=== PATIENT | male | born 1940 | race Caucasian/White ===

== ENCOUNTER 2017-07-05 16:51 | Emergency (ER) | payer MEDICARE ==
[~2017-07-05] VITALS: Ht 182.9 cm; Wt 135.0 kg
[2017-07-05 17:00] VITALS: BP 219/95; PULSE 88; RESP 18; TEMP 98.4; O2SAT 97
--- NOTE | 2017-07-05 17:54 | PD ---
HPI Chief Complaint: Fall Time Seen by Provider: 17:35 Travel History International Travel<30 days: No Contact w/Intl Traveler<30days: No History of Present Illness HPI 77yo M with PMH of afib on eliquis, DM, HTN, presents to the ED with chipped front tooth and abrasion on nose and mid upper lip s/p trip and fall at 4:38pm today. Pt was walking when he didn't lift his leg high enough and fell forward. States he hit his face but does not think he think his head. Denies any headache, dizziness, chest pain, sob, n/v, abdominal pain, focal weakness or numbness. PFSH Social History Tobacco Use: No Allergies-Medications (Allergen,Severity, Reaction): Coded Allergies: No Known Allergies (Unverified , 07/05/17) Reported Meds & Prescriptions Reported Meds & Active Scripts Active Tylenol (Acetaminophen) 325 Mg Tab 325 Mg PO Q6H PRN Reported Refresh Optive Advanced Opth Drops (Swvvzazaculvghlvk-Jtkorxsqt-Ycrvuhevahe 80) 0.5-1-0.5% Soln 1-2 Drop LEFT EYE BID PRN Combigan Opth Drops (Brimonidine-Timolol Opth Drops) 0.2-0.5% Soln 1 Drop LEFT EYE Q12HR Simvastatin 20 Mg Tab 20 Mg PO DAILY Niacin ER 1,000 Mg Tab 2,000 Mg PO DAILY Metformin (Metformin HCl) 500 Mg Tab 1,500 Mg PO HS With a meal Magnesium Oxide 400 Mg Tab 400 Mg PO DAILY Lyrica (Pregabalin) 75 Mg Cap 75 Mg PO DAILY Losartan (Losartan Potassium) 50 Mg Tab 50 Mg PO DAILY Januvia (Sitagliptin Phosphate) 100 Mg Tab 100 Mg PO DAILY Furosemide 40 Mg Tab 40 Mg PO DAILY Finasteride 5 Mg Tab 5 Mg PO DAILY Do not crush. Eliquis (Apixaban) 5 Mg Tab 5 Mg PO BID Caltrate 600+D Chew (Calcium Carbonate-Vitamin D Chew) 600-400 Mg-Unit Chew 1 Tab PO DAILY Review of Systems Except as stated in HPI: all other systems reviewed are Neg Physical Exam Narrative GENERAL: 77yo M in mild distress. SKIN: Focused skin assessment warm/dry. HEAD: Atraumatic. Normocephalic. EYES: Pupils equal and round. No scleral icterus. No injection or drainage. ENT: No nasal bleeding or discharge. No septal hematoma. MOUTH: +Chipped tooth #9. No pulp exposure. There is some dried blood in the gum in between tooth 6 and 7 as well as tooth 10 and 11. No loose tooth on exam. No laceration inside mouth. Abrasion in mid upper lip. NECK: No midline cervical spine ttp. CARDIOVASCULAR: Regular rate and rhythm. No murmur appreciated. RESPIRATORY: No accessory muscle use. Clear to auscultation. Breath sounds equal bilaterally. GASTROINTESTINAL: Abdomen soft, non-tender, nondistended. MUSCULOSKELETAL: No obvious deformities. No clubbing. No cyanosis. No edema. NEUROLOGICAL: Awake and alert. No obvious cranial nerve deficits. Motor grossly within normal limits. Normal speech. PSYCHIATRIC: Appropriate mood and affect; insight and judgment normal. Data Data Last Documented VS Vital Signs Date Time Temp Pulse Resp B/P Pulse Ox O2 Delivery O2 Flow Rate FiO2 07/05/17 18:29 77 18 140/69 98 Room Air 07/05/17 17:[address] Brain W/O Iv Contrast(Rout) (07/05/17 ) Ct Facial Bones W/O Iv Cont (07/05/17 ) Electrocardiogram (07/05/17 ) Blood Glucose (07/05/17 17:54) Tetanus/Diphtheria Tox Adult (Tetanus/Di (07/05/17 18:00) Bacitracin Oint (Baciguent Oint) (07/05/17 18:00) MDM Medical Decision Making Medical Screen Exam Complete: Yes Emergency Medical Condition: Yes Interpretation(s) EKG: Afib at 81bpm. LAD. No ST segment elevation or depression. Differential Diagnosis Facial fracture vs. tooth fracture vs. abrasion vs. ICH Narrative Course 77yo M presents with a chipped tooth and facial abrasion s/p mechanical fall onto his face today from standing position. Pt is on eliquis for afib but bleeding in mouth stopped on its own. Repeat BP 140/[address] brain showed no acute disease. CT maxillofacial showed no fracture. There does appear to be some air within soft tissue over the upper lip region. This is where the abrasion is. No laceration inside or outside this region to repair. Blood glucose 109. EKG showed rate controlled afib. Pt understands that he needs follow up with dental for his fractured tooth and states he will follow up with his own dentist Monday. Pt given tetanus and bacitracin applied to upper lip abrasion. Pt is well appearing and wants to go home. Return precautions given. Diagnosis Primary Impression: Fall Qualified Code: W19.XXXA - Fall, initial encounter Patient Instructions: General Instructions Departure Forms: Tests/Procedures Additional Instructions: Please follow up with your dentist as soon as you can. Return to the ED if symptoms worsen. Med/Other Pt SpecificInfo: Prescription(s) given Scripts Acetaminophen (Tylenol)325 Mg Cir948 Mg PO Q6H PRN (PAIN SCALE 1 TO 4) #20 TAB Ref 0 Prov:Natasha Cannon DO 07/05/17 Disposition: 01 DISCHARGE HOME Condition: Stable Natasha Cannon DO Jul 05, 2017 17:54
[2017-07-05] MEDS ORDERED: TETANUS/DIPHTHERIA TOXOID ADULT 0.5 ML VIAL IM ONE (18:00)
[2017-07-05] MEDS ORDERED: BACITRACIN TOP OINT 15 GM TUBE TOPICAL ONE (18:00)
[2017-07-05] MEDS ORDERED: METF500T PO (18:02)
[2017-07-05] MEDS ORDERED: CALTCHW5 PO (18:02)
[2017-07-05] MEDS ORDERED: LYRI75CA PO (18:02)
[2017-07-05] MEDS ORDERED: NIAC1TAB5 PO (18:02)
[2017-07-05] MEDS ORDERED: MAGN400T2 PO (18:02)
[2017-07-05] MEDS ORDERED: APIX5TAB PO (18:02)
[2017-07-05] MEDS ORDERED: FURO40TA PO (18:02)
[2017-07-05] MEDS ORDERED: CARBSOL LEFT EYE (18:02)
[2017-07-05] MEDS ORDERED: SITA1TAB2 PO (18:02)
[2017-07-05] MEDS ORDERED: LOSA50TA PO (18:02)
[2017-07-05] MEDS ORDERED: SIMV20TA PO (18:02)
[2017-07-05] MEDS ORDERED: COMB0.2S LEFT EYE (18:02)
[2017-07-05] MEDS ORDERED: FINA5TAB2 PO (18:02)
[2017-07-05 18:29] VITALS: BP 140/69; PULSE 77; RESP 18; O2SAT 98
--- NOTE | 2017-07-05 19:31 | RADRPT ---
EXAM DATE/TIME: 07/05/2017 18:41 [facility] COMPARISON: No previous studies available for comparison. INDICATIONS : Trauma, trip and fall. RADIATION DOSE: 60.58 CTDIvol (mGy) MEDICAL HISTORY : Hypertension. Diabetes mellitus type 2. SURGICAL HISTORY : None. ENCOUNTER: Initial ACUITY: 1 day PAIN SCALE: 5/10 LOCATION: facial TECHNIQUE: Multiple contiguous axial images were obtained of the head. Using automated exposure control and adj ustment of the mA and/or kV according to patient size, radiation dose was kept as low as reasonably a chievable to obtain optimal diagnostic quality images. DICOM format image data is available electro nically for review and comparison. FINDINGS: CEREBRUM: The ventricles are normal for age. No evidence of midline shift, mass lesion, hemorrhage or acute in farction. No extra-axial fluid collections are seen. POSTERIOR FOSSA: The cerebellum and brainstem are intact. The 4th ventricle is midline. The cerebellopontine angle i s unremarkable. EXTRACRANIAL: The visualized portion of the orbits is intact. SKULL: The calvaria is intact. No evidence of skull fracture. CONCLUSION: No acute disease. Vito Toth MD on July 05, 2017 at 19:29 Board Certified Radiologist. This report was verified electronically.
--- NOTE | 2017-07-05 19:33 | RADRPT ---
EXAM DATE/TIME: 07/05/2017 18:41 [facility] COMPARISON: No previous studies available for comparison. INDICATIONS : Trauma, trip and fall. RADIATION DOSE: 34.34 CTDIvol (mGy) MEDICAL HISTORY : Hypertension. Diabetes mellitus type 2. SURGICAL HISTORY : None. ENCOUNTER: Initial ACUITY: 1 day PAIN SCORE: 5/10 LOCATION: facial TECHNIQUE: Volumetric scanning of the facial bones was performed. Using automated exposure control and adjustme nt of the mA and/or kV according to patient size, radiation dose was kept as low as reasonably achiev able to obtain optimal diagnostic quality images. DICOM format image data is available electronicall y for review and comparison. FINDINGS: ORBITS: The orbital and infraorbital osseous structures are intact. The retroconal structures have a normal configuration. No radiopaque foreign bodies are seen. NASAL BONE: The nasal bone and maxillary spine are intact ZYGOMATIC ARCHES: Symmetric without evidence of fracture. SINUSES: The maxillary, ethmoid and frontal sinuses are intact. No air-fluid levels seen. NASAL CAVITY: The nasal septum is intact and midline. The lacrimal ducts are intact. SOFT TISSUES: There does appear to be some air in the upper lip region. This may correlate with any injury. No radi opaque foreign bodies seen. No soft-tissue swelling is seen. INTRACRANIAL: No intracranial air seen. CRIBIFORM PLATE: Grossly intact. CONCLUSION: No fracture is seen. There does appear to be some air within the soft tissues over the upper lip dottie on. Vito Toth MD on July 05, 2017 at 19:30 Board Certified Radiologist. This report was verified electronically.
[2017-07-05] MEDS ORDERED: TYLE325T PO (19:49)
--- NOTE | 2017-07-06 09:13 | EKG ---
Date Performed: 07/05/2017 Time Performed: 18:06:31 PTAGE: 77 years EKG: ATRIAL FIBRILLATION MARKED LEFT AXIS DEVIATION POSSIBLE SEPTAL MYOCARDIAL INFARCTION ABNORM AL ECG NO PREVIOUS TRACING DOCTOR: Hu Marinelli Interpretating Date/Time 07/06/2017 09:03:52
== END 2017-07-05 19:59 | disposition home or self-care (01) ==
LOC: PHED 16:51 → PHEFT 19:59
DX: S00.31XA Abrasion of nose, initial encounter (principal); S00.511A Abrasion of lip, initial encounter; K08.89 Other specified disorders of teeth and supporting structures; R94.31 Abnormal electrocardiogram [ECG] [EKG]; E11.9 Type 2 diabetes mellitus without complications; I10 Essential (primary) hypertension; W01.0XXA Fall on same level from slipping, tripping and stumbling without subsequent striking against object, initial encounter; Y93.01 Activity, walking, marching and hiking; Z23 Encounter for immunization; Z79.01 Long term (current) use of anticoagulants; Z79.84 Long term (current) use of oral hypoglycemic drugs; Z86.79 Personal history of other diseases of the circulatory system
CPT/HCPCS: 70450; 70486; 90471; 90714; 93005